=== PATIENT | male | born 1940 | race Caucasian/White ===

== ENCOUNTER → 2017-12-04 | Outpatient (CLI) | payer MEDICARE, OTHER ==
--- NOTE | 2017-12-04 11:53 | RAD ---
4V right shoulder. Indication: M25.511 Comparison: None. Impression: At least moderate AC joint osteoarthritis noted. Prominent lateral downsloping of the acromion with ill-defined ossification projecting superior to the acromion and is nonspecific. Further characterization with MRI recommended. Multifocal calcifications at the rotator cuff tendon insertions concerning for calcium hydroxyapatite deposition. Chondrocalcinosis suspected as well. At least mild glenohumeral joint osteoarthritis. Questionable ill-defined lucency within the axilla, which could reflect air density or fat. No acute fracture identified. Electronically signed by: Maxim Roberto MD 12/04/2017 11:52 AM [facility]
== END | disposition home or self-care (01) ==
LOC: RAD 09:03
PROVIDERS: ATTEND Orthopaedic Surgery
DX: M25.511 Pain in right shoulder (principal)